=== PATIENT | female | born 1955 | race Caucasian/White ===

== ENCOUNTER 2019-01-28 13:35 | Emergency (ER) | payer OTHER ==
[~2019-01-28] VITALS: Ht 167.6 cm; Wt 95.6 kg
[2019-01-28 13:39] VITALS: BP 159/85; PULSE 92; RESP 20; Ht 167.6 cm; Wt 95.6 kg
[2019-01-28] MEDS ORDERED: ALBUTEROL 0.083% (NEB) 2.5 MG/3 ML AMP HHN STA (14:08)
[2019-01-28] MEDS ORDERED: ACETAMINOPHEN 325 MG TAB PO ONE (14:30)
[2019-01-28] MEDS ORDERED: DEXAMETHASONE 4 MG TAB PO ONE (14:30)
[2019-01-28] MEDS ORDERED: AZIT250T PO (14:58)
[2019-01-28] MEDS ORDERED: ALBU18HF INHALATION (14:58)
[2019-01-28] MEDS ORDERED: PROM5SYR2 PO (14:58)
--- NOTE | 2019-01-28 15:02 | ERD ---
ER Documentation Chief Complaint Chief Complaint Pt with c/o green prodective cough x 14 days, unable to sleep due to cough HPI 63-year-old female presents with productive cough for last 2 weeks. She also possibly is wheezing or "whistling when she breathes. She has low-grade temperature triage. Denies chest pain, vomiting, abdominal pain. She denies history of asthma or pulmonary issues. She denies tobacco use or smoking. ROS All systems reviewed and are negative except as per history of present illness. Medications Home Meds Active Scripts Promethazine HCl/Codeine (Prometh-Codein 6.25-10 mg/5 ml) 5 Ml Syrup, 5 ML PO TID for 5 Days 4 OZ Prov:CHAD BOX MD 01/28/19 Albuterol Sulfate* (Ventolin HFA*) 18 Gm Hfa.aer.ad, 2 PUFF INHALATION Q4H, #1 INHALER Prov:CHAD BOX MD 01/28/19 Azithromycin* (Zithromax*) 250 Mg Tablet, 250 MG PO .ZPACK DIRECTED, #6 TAB TAKE 500 MG (2 TABS) THE FIRST DAY THEN 250 MG (1 TAB) DAYS 2-5 Prov:CHAD BOX MD 01/28/19 Allergies Allergies: Coded Allergies: Penicillins (Verified Allergy, Intermediate, rashes,itchy, 01/28/19) PMhx/Soc Medical and Surgical Hx: pt denies Medical Hx, pt denies Surgical Hx Hx Alcohol Use: No Hx Substance Use: No Hx Tobacco Use: No Smoking Status: Never smoker FmHx Family History: No diabetes, No coronary disease, No other Physical Exam Vitals Vital Signs Date Temp Pulse Resp B/P (MAP) Pulse Ox O2 O2 Flow FiO2 Time Delivery Rate 01/28/19 92 20 96 21 14:19 01/28/19 100.3 14:18 01/28/19 100.3 92 20 159/85 96 13:39 (109) Physical Exam Const: No acute distress Head: Atraumatic Eyes: Normal Conjunctiva ENT: Normal External Ears, Nose and Mouth. TMs normal. Neck: Full range of motion. No meningismus. Resp: Clear to auscultation bilaterally coarse cough with rhonchi with forced wheeze without rales or retractions. Cardio: Regular rate and rhythm, no murmurs Abd: Soft, non tender, non distended. Normal bowel sounds Skin: No petechiae or rashes Back: No midline or flank tenderness Ext: No cyanosis, or edema Neur: Awake and alert Psych: Normal Mood and Affect Results 24 hrs Current Medications Medications Dose Sig/Key Start Time Status Last (Trade) Ordered Route PRN Stop Time Admin Dose Reason Admin 16 mg ONCE ONCE 01/28/19 DC 01/28/19 Dexamethasone PO 14:30 14:32 (Decadron) 01/28/19 14:31 Albuterol 5 mg ONCE STAT 01/28/19 DC 01/28/19 (Proventil HHN 14:08 14:25 0.083% (Neb)) 01/28/19 14:10 650 mg ONCE ONCE 01/28/19 DC 01/28/19 Acetaminophen PO 14:30 14:18 (Tylenol 01/28/19 14:31 Tab) Procedures/MDM Chest X-ray 1V Interpreted by me: Soft Tissue: No acute abnormalities Bones: No acute abnormalities Mediastinum/Cardiac Silhouette/Lungs: No acute abnormalities. Impression-no acute findings on 1 view chest x-ray patient was given 60 mg prednisone, albuterol treatment, patient had no rales or retractions or hypoxemia on serial exam patient had persistent coarse cough. Patient presents with signs and symptoms of bronchitis with wheezing. She has no signs of pneumonia, hypoxemia, respiratory distress. Given the duration of symptoms we will treat empirically with Zithromax, short course of prednisone, Ventolin, cough syrup, primary care follow-up and return precautions. The patient was stable with no new complaints during the ER course. Clinically, there is no current evidence to suggest meningitis, sepsis, acute abdomen, pneumonia, stroke, acute coronary syndrome, pulmonary embolism, aortic dissection or any other emergent condition appearing to require further eval uation or hospitalization. Patient counseled regarding my diagnostic impression and care plan. Prior to discharge all questions answered. Pt agrees with treatment plan and understands strict return precautions. Pt is instructed to follow up with primary care provider within 24-48 hours. Precautionary instructions provided including instructions to return to the ER if not improving or for any worsening or changing symptoms or concerns. Disclaimer: Inadvertent spelling and grammatical errors are likely due to EHR/dictation software use and do not reflect on the overall quality of patient care. Also, please note that the electronic time recorded on this note does not necessarily reflect the actual time of the patient encounter. Departure Diagnosis: Primary Impression: Wheeze Additional Impression: URI, acute Condition: Stable Patient Instructions: Bronchitis With Wheezing (Adult) Additional Instructions: X-ray read as normal. Will treat for bronchitis and wheezing. Recheck for new worsening symptoms with primary care doctor. CHAD OBX MD Jan 28, 2019 15:02
== END 2019-01-28 15:23 | disposition home or self-care (01) ==
LOC: FTE 13:35
DX: J06.9 Acute upper respiratory infection, unspecified (principal)
CPT/HCPCS: 71045; 94664; Z7502; Z7610